=== PATIENT | female | born 1970 | race Caucasian/White ===

== ENCOUNTER 2018-01-07 05:29 | Day surgery (SDC) | payer OTHER ==
[2018-01-05 12:22] LABS: APPEARANCE,URINE CLEAR; BILIRUBIN,URINE NEGATIVE (NEGATIVE); COLOR,URINE YELLOW; GLUCOSE, URINE NEGATIVE (NEGATIVE); KETONES,URINE NEGATIVE (NEGATIVE); LEUKOCYTE ESTERASE,URINE NEGATIVE (NEGATIVE); NITRITE,URINE NEGATIVE (NEGATIVE); PROTEIN,URINE NEGATIVE (NEGATIVE); URINE SPECIFIC GRAVITY 1.016; UROBILINOGEN,URINE NEGATIVE mg/dL (<2.0)
[2018-01-05 13:14] LABS: HEMOGLOBIN 12.6 g/dL (12.0-15.5); MEAN CORPUSCULAR HGB CONC 33.1 g/dL (32.0-36.0); MEAN CORPUSCULAR VOLUME 88 fl (80-97); PLATELET COUNT 329 10^3/uL (150-450); RED BLOOD COUNT 4.34 10^6/uL (3.72-5.28); RED CELL DISTRIBUTION WIDTH 13.6 % (11.5-14.0); WHITE BLOOD COUNT 8.9 10^3/uL (4.0-10.5)
[2018-01-05 13:36] LABS: ANION GAP 8 (5-19); BLOOD UREA NITROGEN 17 mg/dL (7-20); CALCIUM 9.6 mg/dL (8.4-10.2); CARBON DIOXIDE 26 mmol/L (22-30); CHLORIDE 106 mmol/L (98-107); GLUCOSE 66 mg/dL (75-110); POTASSIUM 4.5 mmol/L (3.6-5.0); SODIUM 140.2 mmol/L (137-145)
[~2018-01-07 05:29] MED LIST: CEFAZOLIN 1 GM/D5W RTU 1 GM/50 ML RTUPB IV PRN; LACTATED RINGERS 1000 ML IV PRN; LIDOCAINE 0.5% INJ-PF (5 MG/ML) 50 ML SDV SUBCUT PRN
[2018-01-07] MEDS ORDERED: LIDOCAINE 2% INJ-PF (20 MG/ML) 10 ML AMPUL ONE (06:25)
[2018-01-07] MEDS ORDERED: MIDAZOLAM 2 MG/2 ML INJ ONE (06:26)
[2018-01-07] MEDS ORDERED: FENTANYL CITRATE INJ/PF 100 MCG/2 ML AMPUL ONE (06:26)
[2018-01-07] MEDS ORDERED: KETAMINE HCL INJ 500 MG/10 ML VIAL ONE (06:26)
[2018-01-07] MEDS ORDERED: PROPOFOL INJ 200 MG/20 ML VIAL IV ONE (06:27)
[2018-01-07] MEDS ORDERED: ONDANSETRON HCL INJ/PF 4 MG/2 ML SDV ONE (06:27)
[2018-01-07] MEDS ORDERED: ACETAMINOPHEN 100 ML IV ONE (06:27)
[2018-01-07] MEDS ORDERED: LIDOCAINE 1% INJ-PF (10 MG/ML) 30 ML SDV ONE (06:59)
[2018-01-07] MEDS ORDERED: OXYCODONE-ACETAMINOPHEN 5-325 MG TABLET PO PRN ×3 (07:55→08:13)
[2018-01-07] MEDS ORDERED: FENTANYL CITRATE INJ/PF 100 MCG/2 ML AMPUL IV PRN ×3 (07:55)
[2018-01-07] MEDS ORDERED: MEPERIDINE HCL/PF INJ 25 MG/1 ML DISP.SYRIN IV PRN (07:55)
[2018-01-07] MEDS ORDERED: DIPHENHYDRAMINE HCL 50 MG/ML VIAL IV PRN (07:55)
[2018-01-07] MEDS ORDERED: MORPHINE SULFATE 10 MG/ML INJ IV PRN (07:55)
[2018-01-07] MEDS ORDERED: PROMETHAZINE HCL INJ 25 MG/1 ML VIAL IV PRN ×2 (07:55)
[2018-01-07] MEDS ORDERED: MORPHINE SULFATE 10 MG/ML INJ INJ PRN (08:14)
[2018-01-07] MEDS ORDERED: PROMETHAZINE HCL INJ 25 MG/1 ML VIAL IM PRN (08:15)
[2018-01-07 11:13] VITALS: BP 111/72
[2018-01-07] MEDS ORDERED: IBUPROFEN 800 MG TABLET PO SCH (14:00)
--- NOTE | 2018-01-07 15:03 | OPERATIVE REPORT E ---
Operative Report NAME: ABDIAS ENGLISH : 1970 AGE: 47Y DATE OF SURGERY: 01/07/2018 ROOM: PREOPERATIVE DIAGNOSIS: Menorrhagia, possible endometrial polyp. POSTOPERATIVE DIAGNOSIS: Menorrhagia. OPERATION: Hysteroscopy, Novasure ablation, endometrial biopsy. SURGEON: GEORGINA GRAHAM M.D. COMPLICATIONS: None. ANESTHESIA: LMA, local 1% Xylocaine, paracervical block. FINDINGS: Abnormal endometrial cavity. No endometrial polyps were found . Uterine measurements were taken. INDICATIONS FOR PROCEDURE: The patient had abnormal uterine bleeding unresponsive to the usual outpatient management. She had a premenopausal FSH level, and the ultrasound demonstrated lesion present in her cervix. An outpatient biopsy showed the cervix only. I am unable to achieve adequate endometrial biopsy. The usual risks including infection, anesthesia, damage to organs or tissue discussed with the patient and understood. The patient had the planned endometrial sampling and polypectomy discussed preoperatively if needed. PROCEDURE: Patient taken to the operating room and placed in the modified lithotomy position. After adequate anesthesia was ascertained, prepped and draped in the usual manner for a hysteroscopy. The cervix . The bladder was left un-drained. The EUA was then performed. No masses . lip of the cervix. The survey of the endometrial cavity is completed. MyoSure was not deemed necessary. Endometrial sampling performed with tissue, and Novasure device was placed and deployed and fired. are noted in the chart. At the completion of the procedure, re-hysteroscopy demonstrated good tl throughout. Photographs were taken. The patient taken to recovery in stable condition. DICTATING PHYSICIAN: GEORGINA GRAHAM M.D. [id number] [id number] PHY#: [id number] ID: [id number] JOB#: [id number] ACCT: [id number] cc:GEORGINA GRAHAM M.D. >
== END 2018-01-07 09:40 | disposition home or self-care (01) ==
LOC: OROUT 05:29
PROVIDERS: ATTEND Specialist
DX: N92.0 Excessive and frequent menstruation with regular cycle (principal); I10 Essential (primary) hypertension; Z79.899 Other long term (current) drug therapy; Z79.891 Long term (current) use of opiate analgesic; Z88.2 Allergy status to sulfonamides
CPT/HCPCS: 86900; 86901; 36415; 86850; 85027; 81025; 80048; 81001; 88305 ×2; 58563; J2250; J0690; J3010; J3490 ×2; J2405; J2704; J0131; 952